=== PATIENT | male | born 1985 | race Caucasian/White ===

== ENCOUNTER 2017-01-12 02:30 | Emergency (ER) | payer SELFPAY ==
[~2017-01-12] VITALS: Ht 185.4 cm; Wt 90.7 kg
--- NOTE | 2017-01-12 02:30 | NUR ---
PT BIB [facility], [facility]. TAKEN TO OF
[2017-01-12 02:33] VITALS: BP 129/82
--- NOTE | 2017-01-12 02:50 | NUR ---
Dr. Mayorga evaluating patient
[2017-01-12 03:05] VITALS: BP 129/82
--- NOTE | 2017-01-12 03:05 | NUR ---
Patient discharged with v/s stable. Written and verbal after care instructions given and explained. Patient verbalized understanding. Police with in custody. All questions addressed prior to discharge. Advised to follow up with [facility]D.
== END 2017-01-12 03:05 ==
LOC: MED 02:30
DX: Z02.89 Encounter for other administrative examinations (principal); R03.0 Elevated blood-pressure reading, without diagnosis of hypertension
CPT/HCPCS: 99283